=== PATIENT | male | born 2000 | race Caucasian/White ===

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

== ENCOUNTER → 2022-03-08 12:19 | Outpatient (BNVA) | payer OTHER, SELFPAY | PROVIDERS: Visit Provider Physician Assistant Medical | DX: L23.7 Allergic contact dermatitis due to plants, except food (principal) | CPT/HCPCS: 99213 ==

== ENCOUNTER → 2022-03-12 13:14 | Outpatient (BNVA) | payer OTHER, SELFPAY | PROVIDERS: Visit Provider Physician Assistant | DX: L23.7 Allergic contact dermatitis due to plants, except food (principal) | CPT/HCPCS: 99213 ==

== ENCOUNTER 2022-04-14 09:21 | Outpatient (REF) | payer OTHER, SELFPAY ==
--- NOTE | ~2022-04-14 | US_ITS ---
EXAMINATION: US RETROPERITONEAL LIMITED (RENAL ONLY) CLINICAL INFORMATION: Calculus of kidney. COMPARISON: Renal ultrasound 03/02/2021 and 06/19/2020. CT abdomen and pelvis 06/19/2020. TECHNIQUE: Real-time imaging of the kidneys. FINDINGS: RIGHT KIDNEY: 11.1 x 4.7 x 4.7 cm (SAG x AP x TRV). The kidney is normal in size, contour, and echogenicity. Renal cortical thickness is normal. There are 2 stones measuring 3 mm and 4 x 7 mm in the midpole. No focal parenchymal lesions or hydronephrosis. LEFT KIDNEY: 11.8 x 5.8 x 4.7 cm (SAG x AP x TRV). The kidney is normal in size, contour, and echogenicity. Renal cortical thickness is normal. There are 2 stones measuring 4 and 5 mm in the mid pole. No focal parenchymal lesions or hydronephrosis. US/US renal BI IMPRESSION: Bilateral renal stones.
== END 2022-04-14 09:22 | disposition home or self-care (01) ==
LOC: HO.US 09:21
PROVIDERS: Visit Provider Urology
DX: N20.0 Calculus of kidney (principal)
CPT/HCPCS: 76775

== ENCOUNTER 2022-05-21 18:51 | Emergency (ER) | payer OTHER, SELFPAY ==
--- NOTE | ~2022-05-21 | XR_ITS ---
EXAMINATION: XR KNEE, LEFT CLINICAL INFORMATION: Pain status post fall COMPARISON: None TECHNIQUE: Four views of the left knee. FINDINGS: Bones and soft tissues are normal. No fracture or joint effusion. Alignment is anatomic. Joint spaces are well maintained. No abnormal soft tissue calcification. XR/XR knee LT 3V IMPRESSION: Normal left knee.
[2022-05-21 20:31] VITALS: BP 117/47; PULSE 80; RESP 17; TEMP 36.7; O2SAT 97; BMI 20.7
[2022-05-21 21:21] VITALS: BP 116/44; PULSE 85; RESP 18; TEMP 36.8; O2SAT 99
--- NOTE | 2022-05-21 21:36 | ED.LOWEXIN ---
HPI - Extremity Injury (Lower) General Chief Complaint: Extremity Injury, Lower Stated Complaint: L knee inj/work inj Time Seen by Provider: 05/21/22 21:32 Source: patient Mode of arrival: ambulatory Limitations: no limitations History of Present Illness MD complaint: knee injury Onset (ago): hour(s) (earlier today ) Injury: Left: knee Type of Injury: other (twisting) Place: work Severity: moderate Relieving factors: immobilization Exacerbating factors: weight bearing, movement and palpation Context: fall (stepped into a ditch) Associated symptoms: snap/pop sensation Other symptoms: none Related Data Home Medications Medication Instructions Recorded Confirmed hydroxyzine pamoate 25 mg capsule mg PO TID PRN 04/29/22 prednisone 10 mg tablet 0 mg PO 04/29/22 Previous Rx's Medication Instructions Recorded ketorolac 10 mg tablet 10 mg PO Q6H PRN pain 5 days 06/19/20 ondansetron HCl 4 mg tablet 4 mg PO Q8H PRN nausea and 06/19/20 (Zofran) vomiting #10 tabs prednisone 20 mg tablet 20 mg PO DAILY 5 days #5 tabs 06/19/20 tamsulosin 0.4 mg capsule (Flomax) 0.4 mg PO DAILY 10 days #10 caps 06/19/20 tramadol 50 mg tablet 50 mg PO Q6H PRN pain #14 tabs 06/30/20 loratadine 10 mg tablet (Allergy 10 mg PO DAILY #30 tabs 11/11/20 Relief (loratadine)) pyridoxine (vitamin B6) 100 mg 100 mg PO DAILY 90 days #90 tabs 05/01/21 tablet hydroxyzine HCl 25 mg tablet 50 mg PO Q6-8H PRN itching #20 tabs 09/01/21 triamcinolone acetonide 0.025 % 1 appl topical BID #454 grams 09/01/21 topical cream Allergies Allergy/AdvReac Type Severity Reaction Status Date / Time No Known Allergies Allergy Verified 04/29/22 15:56 [No Known Allergies*] Review of Systems Review of Systems: Constitutional : No Fever, No Chills Cardiovascular : No Chest Pain, No SOB Respiratory : No Cough, No Dyspnea Gastrointestinal : No Nausea, No Vomiting, No Diarrhea, No abdominal Pain Genitourinary : No Dysuria, No Hematuria Musculoskeletal : positive joint pain, No Myalgias, No Joint Swelling Skin : No Skin lacerations, No rash Neuro : No Weakness, No Numbness PMFSH Past Medical History Attestation statement: The following information was validated with the patient. Medical History Nephrolithiasis Social History Social History (Updated 05/21/22 @ 21:51 by Lety Aguillon DO) Alcohol intake: never Patient Tobacco Use Status: Never used Tobacco Second Hand Smoke Exposure: No Substance Use Type: Marijuana Advance Directives: No Advance Directives Information Provided: No Physical Exam Vital Signs: Vital Signs: Last Vital Signs Temp 98.3 F 05/21/22 21:21 Pulse 85 05/21/22 21:21 Resp 18 05/21/22 21:21 BP 116/44 L 05/21/22 21:21 Pulse Ox 99 05/21/22 21:21 O2 Del Method 05/21/22 21:21 BMI result Body Mass Index 20.7 Appearance: Alert. Oriented X3. No acute distress. Eyes: Pupils equal, round and reactive to light. ENT: Pharynx normal. Neck: Normal inspection. Neck supple. CVS: Pulses normal. Respiratory: No respiratory distress. Abdomen: Soft and non-tender. Skin: Skin warm and dry. Normal skin color. Extremities: No lower extremity edema. L knee ttp posterior knee and lateral aspect no effusion distal NV intact - ACL and MCL feel intact no obvious lig laxity Neuro: Oriented X 3. No motor deficit. No sensory deficit. MDM - Extremity Injury (Lower) MDM Narrative Medical decision making narrative: 21 yo male otherwise healthy here with twisting injury to L knee at this time will obtain xrays, immobilizer follow up with PCP for MRI if no better - sprain suspected. He is NV intact Procedures Orthopedic Splinting/Casting Injury #1: Side: left Lower Extremity Injury Location: knee Lower Extremity Immobilizer: knee immobilizer Discharge Plan Discharge Clinical Impression: Left knee sprain Qualifiers: Encounter type: initial encounter Involved ligament of knee: unspecified ligament Qualified Code(s): S83.92XA - Sprain of unspecified site of left knee, initial encounter Patient Disposition: Home, Self-Care Instructions: Knee Sprain (ED) Additional Instructions: return to ED for any worsening symptoms or concerns wear immobilizer if not better over the weekend see your doctor as you may need MRI to look at ligaments and cartilage take tylenol and motrin follow up with doctor to get cleared for work Prescriptions: No Action loratadine [Allergy Relief (loratadine)] 10 mg tablet 10 mg PO DAILY Qty: 30 3RF tramadol 50 mg tablet 50 mg PO Q6H PRN (Reason: pain) Qty: 14 0RF ondansetron HCl [Zofran] 4 mg tablet 4 mg PO Q8H PRN (Reason: nausea and vomiting) Qty: 10 0RF ketorolac 10 mg tablet 10 mg PO Q6H PRN (Reason: pain) 5 Days 0RF prednisone 20 mg tablet 20 mg PO DAILY 5 Days Qty: 5 0RF tamsulosin [Flomax] 0.4 mg capsule 0.4 mg PO DAILY 10 Days Qty: 10 0RF hydroxyzine HCl 25 mg tablet 50 mg PO Q6-8H PRN (Reason: itching) Qty: 20 0RF Rx Instructions: take one or two tabs q6-8 hrs triamcinolone acetonide 0.025 % cream 1 appl topical BID Qty: 454 0RF pyridoxine (vitamin B6) 100 mg tablet 100 mg PO DAILY 90 Days Qty: 90 3RF hydroxyzine pamoate 25 mg capsule PO TID PRN prednisone 10 mg tablet 0 mg PO
== END 2022-05-21 22:35 | disposition home or self-care (01) ==
PROVIDERS: Emergency Provider Emergency Medicine
DX: S83.92XA Sprain of unspecified site of left knee, initial encounter (principal); X50.1XXA Overexertion from prolonged static or awkward postures, initial encounter; Y93.9 Activity, unspecified; Y92.9 Unspecified place or not applicable; Y99.0 Civilian activity done for income or pay; Z79.899 Other long term (current) drug therapy
CPT/HCPCS: 29505; 73562; 99282; 99283

== ENCOUNTER 2023-01-05 06:59 | Emergency (ER) | payer OTHER, SELFPAY ==
--- NOTE | ~2023-01-05 | CT_ITS ---
EXAMINATION: CT ABDOMEN AND PELVIS WITHOUT CONTRAST CLINICAL INFORMATION: Right groin pain with hematuria and history of renal calculi COMPARISON: CT abdomen pelvis 06/19/2020 TECHNIQUE: Multidetector volumetric imaging was performed from the superior aspect of the liver through the pubic symphysis. Sagittal and coronal reformatted images were obtained on the technologist's workstation. This CT examination was performed using dose optimization techniques as appropriate, variously including the following: *Automated exposure control *Adjustment of mA and/or kV according to patient size (this includes techniques or standardized protocols for targeted exams where dose is matched to indication/reason for exam; i.e. extremities or head) *Use of iterative reconstruction technique DLP: 294 mGy-cm FINDINGS: LUNG BASES: The visualized lung bases are unremarkable. LIVER, GALLBLADDER, AND BILIARY TREE: The liver is enlarged measuring about 20 cm in cephalocaudad dimension but is normal in shape and attenuation. No focal hepatic lesion or biliary ductal dilatation is present. The gallbladder is unremarkable with no evidence of radiopaque gallstones, gallbladder wall thickening, or obvious pericholecystic inflammatory changes. PANCREAS: Unremarkable. SPLEEN: Unremarkable. ADRENAL GLANDS: Unremarkable. KIDNEYS AND URETERS: There is an obstructing stones at the right ureteropelvic junction measuring 9 x 5 x 8 mm in size and 1100 Hounsfield units the stone is 8.3 cm from the posterior axillary line. On 06/19/2020, there was a 3 mm stone present in the kidney. No other definite calculi are seen. No definite left-sided calculi. No renal masses. The ureters are nondilated. BLADDER: The bladder is nearly empty but unremarkable. GASTROINTESTINAL TRACT: Diverticular changes are present in the colon without evidence of diverticulitis. The small and large bowel are otherwise unremarkable. The appendix is none identified with certainty but there is no evidence of appendicitis.. ABDOMINAL WALL: No significant hernia is appreciated. LYMPH NODES: There is a prominent left para-aortic lymph node seen measuring 0.9 x 0.4 x 3.0 cm. No gross retroperitoneal lymphadenopathy is seen. Evaluation is less than optimal secondary to lack of IV contrast and lack of retroperitoneal fat. VASCULAR: Unremarkable. PELVIC VISCERA: Unremarkable. OSSEOUS STRUCTURES: Unremarkable. CT/CT abdomen pelvis wo IV con IMPRESSION: 1. 9 x 5 x 8 mm obstructing right ureteropelvic junction calculus. 2. Incidental note made of hepatomegaly, colonic diverticulosis and a prominent left para-aortic lymph node. Fleischner guidelines were followed.
[2023-01-05 07:01] VITALS: BP 129/68; PULSE 76; RESP 18; TEMP 36.8; O2SAT 100; BMI 20.9
--- NOTE | 2023-01-05 07:36 | ED.MALEGU ---
HPI - Male Genitourinary General Chief complaint: Urogenital-Male Stated complaint: Blood in urine Time Seen by Provider: 01/05/23 07:05 Source: patient Mode of arrival: ambulatory Limitations: no limitations History of Present Illness HPI Narrative: Patient is a 22-year-old male with history of kidney stones presenting with hematuria and right groin pain since this morning. He reports that his urine was darker than normal yesterday. He denies any dysuria or difficulty urinating. He denies any nausea or vomiting. Denies any fevers, denies abdominal or flank pain. He has not taken any OTC medications [employer]. He denies concern for STIs. He denies any rashes, erythema, or swelling in groin, denies any penile discharge. MD Complaint: other (hematuria) Onset (ago): hour(s) Location: right inguinal region Severity scale (1-10): 6 Relieving factors: none Exacerbating factors: movement Associated symptoms: Reports blood in urine Related Data Home Medications Medication Instructions Recorded Confirmed hydroxyzine pamoate 25 mg capsule mg PO TID PRN 04/29/22 prednisone 10 mg tablet 0 mg PO 04/29/22 Previous Rx's Medication Instructions Recorded ketorolac 10 mg tablet 10 mg PO Q6H PRN pain 5 days 06/19/20 ondansetron HCl 4 mg tablet 4 mg PO Q8H PRN nausea and 06/19/20 (Zofran) vomiting #10 tabs prednisone 20 mg tablet 20 mg PO DAILY 5 days #5 tabs 06/19/20 tamsulosin 0.4 mg capsule (Flomax) 0.4 mg PO DAILY 10 days #10 caps 06/19/20 tramadol 50 mg tablet 50 mg PO Q6H PRN pain #14 tabs 06/30/20 loratadine 10 mg tablet (Allergy 10 mg PO DAILY #30 tabs 11/11/20 Relief (loratadine)) pyridoxine (vitamin B6) 100 mg 100 mg PO DAILY 90 days #90 tabs 05/01/21 tablet hydroxyzine HCl 25 mg tablet 50 mg PO Q6-8H PRN itching #20 tabs 09/01/21 triamcinolone acetonide 0.025 % 1 appl topical BID #454 grams 09/01/21 topical cream prednisone 20 mg tablet 20 mg PO DAILY #4 tabs 01/05/23 tamsulosin 0.4 mg capsule 0.4 mg PO DAILY #14 caps 01/05/23 Allergies Allergy/AdvReac Type Severity Reaction Status Date / Time No Known Allergies Allergy Verified 04/29/22 15:56 [No Known Allergies*] Review of Systems Review of Systems: As per HPI. Yes all other systems are reviewed and are negative Constitutional: Constitutional: Reports as per HPI [facility] Past Medical History Medical History Nephrolithiasis Social History Social History (Updated 05/21/22 @ 21:51 by Lety Aguillon DO) Alcohol intake: never Patient Tobacco Use Status: Never used Tobacco Second Hand Smoke Exposure: No Substance Use Type: Marijuana Advance Directives: No Advance Directives Information Provided: No Physical Exam Vital Signs: Vital Signs: Last Vital Signs Temp 98.2 F 01/05/23 12:21 Pulse 72 01/05/23 12:21 Resp 18 01/05/23 12:21 BP 104/55 L 01/05/23 12:21 Pulse Ox 98 01/05/23 12:21 O2 Del Method Room Air 01/05/23 12:21 BMI result Body Mass Index 20.9 Vital signs have been reviewed and appear to be correct. Blood pressure normal. Heart rate normal. Respiratory rate normal. Temperature normal. Oxygen saturation normal. Const: General: cooperative, healthy appearing and no acute distress Orientation/consciousness: oriented to person, oriented to place, oriented to time and patient oriented x3 Limitations: no limitations HEENT: Head: Yes normocephalic and Yes atraumatic Ears: external ears normal General nose exam: Normal external nose present Face and sinus: Yes face symmetric Mouth: oropharynx normal and moist mucous membranes Throat: Yes uvula midline Eyes: Pupils: Equal, round and reactive pupils present Neck: Neck: Yes normal visual inspection and Yes supple Resp: Effort & Inspection: normal respiratory effort and able to speak in complete sentences Auscultation: clear to auscultation bilaterally Cardio: Rate: regular rate Rhythm: regular rhythm Heart sounds: S1 normal heart sound present and S2 normal heart sound present GI: Inspection: Yes normal to inspection Palpation (GI): Soft to palpation, nontender, no guarding, no hernias and No Rebound tenderness present Auscultation: normoactive bowel sounds : General: Yes no CVA tenderness Back/Spine/Pelvis: Back: no CVA tenderness Skin: General skin exam: elasticity normal and turgor normal Neuro: General: oriented to person, oriented to place, oriented to time, patient oriented x3, moves all extremities, no focal motor deficits and CN's II-XI intact bilaterally Cranial nerves: Yes Equal, round and reactive pupils present Cognition (Neuro): normal cognition Extrem: General: Yes full ROM, Yes no pedal edema and Yes no calf tenderness Psych: Mental Status: mental status grossly normal Affect: normal affect Thought process: Normal thought process present Course Course Course Narrative: 11:05 CT scan shows 9 x5 x 8mm obstructing stone to right UPJ. Also incidental finding of prominent left para aortic lymph node. Patient updated on result and instructed to follow up with his PCP this week for further evaluation of the lymph node. [place] Text to Dr. Kay regarding management. Patient denies any pain or nausea currently. 12:[address] Kay patient can go home with tamsulosin and prednisone and follow up outpatient. All results discussed with patient and all questions answered, patient agreeable with plan. Medications Administered Discontinued Medications Generic Name Dose Route Start Last Admin Trade Name Freq PRN Reason Stop Dose Admin Ketorolac Tromethamine 15 mg 01/05/23 07:40 01/05/23 07:57 Ketorolac Tromethamine 15 Mg/Ml Vial IVPUSH 01/05/23 07:41 15 mg ONCE ONE Administration Medical Decision Making Medical Decision Making [facility] Narrative: Patient is a 22-year-old male with history of kidney stones presenting with hematuria and right groin pain since this morning. On exam patient is awake, A+Ox3, VS WNL, nontoxic appearing, abdomen soft, nontender to palpation, no CVA tenderness. Concern for UTI versus nephrolithiasis versus STI. Less likely pyelonephritis, appendicitis, diverticulitis. Unlikely hernia or testicular torsion. Will obtain CT NG urine, UA, medicate for pain, reassess. Please refer to course for remaining clinical decision making. Differential Diagnosis Differential Diagnoses: The differential diagnosis associated with the presentation includes As above. Admission/Observation Consideration of admission/observation: Escalation of care including admission/observation considered Consult Healthcare Provider Management of the patient was discussed with: Waste Examiner (Dr. Kay) Lab Data [facility] Lab Attestation statement: I reviewed the patient's lab results. 01/05/23 07:25 05/31/23 07:25 Labs: Lab Results 01/05/23 01/05/23 01/05/23 Range/Units 07:23 07:25 07:25 WBC 4.8 (4.8-10.8) X10*3/uL RBC 4.73 (4.60-5.80) X10*6/uL Hgb 14.1 (14.0-18.0) g/dl Hct 43.0 (42.0-52.0) % MCV 90.9 (80.0-98.0) fL MCH 29.8 (27.0-33.0) pg MCHC 32.8 (31.0-36.0) g/dl RDW 12.5 (11.0-16.0) % Plt Count 255 (160-400) X10*3/uL MPV 10.0 (9.4-12.4) fL Absolute Nucleated RBC 0.000 (0.0-0.012) X10*3/uL Nucleated RBC % (auto) 0.0 (0.0-0.2) /100WBC Sodium 140 (135-145) mmol/L Potassium 4.3 (3.3-5.1) mmol/L Chloride 105 (96-108) mmol/L Carbon Dioxide 29 (22-29) mmol/L Anion Gap 10 L (12-20) BUN 9 (9-16) mg/dL Creatinine 0.75 (0.5-1.4) mg/dL Estim Creat Clear Calc 151.1 Estimated GFR > 60 Random Glucose 101 (60-115) mg/dL Calcium 9.4 (8.4-10.2) mg/dL Urine Color RED Urine Appearance Cloudy Urine pH 5.0 (5.0-9.0) Ur Specific [place] 1.025 (1.005-1.025) Urine Protein 100 (2+) H (Neg-Trace) mg/dL Urine Glucose (UA) Negative (Negative) mg/dL Urine Ketones Trace (Negative) mg/dL Urine Blood Large (3+) H (Negative) Urine Nitrite TNP Ur Leukocyte Esterase Small (1+) H (Negative) Urine RBC >20 H (0-2) /HPF Urine WBC 21-50 H (0-5) /HPF Ur Squamous Epith Cells 0-2 (0-2) /HPF Urine Bacteria None Seen (None Seen) Hyaline Casts 0-2 (0-2) /LPF Chlam trachomat DNA PCR N.gonorrhoeae DNA (PCR) 01/05/23 Range/Units 08:15 WBC (4.8-10.8) X10*3/uL RBC (4.60-5.80) X10*6/uL Hgb (14.0-18.0) g/dl Hct (42.0-52.0) % MCV (80.0-98.0) fL MCH (27.0-33.0) pg MCHC (31.0-36.0) g/dl RDW (11.0-16.0) % Plt Count (160-400) X10*3/uL MPV (9.4-12.4) fL Absolute Nucleated RBC (0.0-0.012) X10*3/uL Nucleated RBC % (auto) (0.0-0.2) /100WBC Sodium (135-145) mmol/L Potassium (3.3-5.1) mmol/L Chloride (96-108) mmol/L Carbon Dioxide (22-29) mmol/L Anion Gap (12-20) BUN (9-16) mg/dL Creatinine (0.5-1.4) mg/dL Estim Creat Clear Calc Estimated GFR Random Glucose (60-115) mg/dL Calcium (8.4-10.2) mg/dL Urine Color Urine Appearance Urine pH (5.0-9.0) Ur Specific [place] (1.005-1.025) Urine Protein (Neg-Trace) mg/dL Urine Glucose (UA) (Negative) mg/dL Urine Ketones (Negative) mg/dL Urine Blood (Negative) Urine Nitrite Ur Leukocyte Esterase (Negative) Urine RBC (0-2) /HPF Urine WBC (0-5) /HPF Ur Squamous Epith Cells (0-2) /HPF Urine Bacteria (None Seen) Hyaline Casts (0-2) /LPF Chlam trachomat DNA PCR TNP N.gonorrhoeae DNA (PCR) TNP Independent Interpretation I performed an independent interpretation of an: CT Scan Interpretation: I independently reviewed the CT scan and agree with the radiologist's interpretation. Radiology Impression Discussion of test interpretation with radiology: I have reviewed the radiologist's reading. Radiologist Impression: FINDINGS: LUNG BASES: The visualized lung bases are unremarkable.? LIVER, GALLBLADDER, AND BILIARY TREE: The liver is enlarged measuring about 20 cm in cephalocaudad dimension but is normal in shape and attenuation. No focal hepatic lesion or biliary ductal dilatation is present. The gallbladder is unremarkable with no evidence of radiopaque gallstones, gallbladder wall thickening, or obvious pericholecystic inflammatory changes.? PANCREAS: Unremarkable.? SPLEEN: Unremarkable.? ADRENAL GLANDS: Unremarkable.? KIDNEYS AND URETERS: There is an obstructing stones at the right ureteropelvic junction measuring 9 x 5 x 8 mm in size and 1100 Hounsfield units the stone is 8.3 cm from the posterior axillary line. On 06/19/2020, there was a 3 mm stone present in the kidney. No other definite calculi are seen. No definite left-sided calculi. No renal masses. The ureters are nondilated. BLADDER: The bladder is nearly empty but unremarkable.? GASTROINTESTINAL TRACT: Diverticular changes are present in the colon without evidence of diverticulitis. The small and large bowel are otherwise unremarkable. The appendix is none identified with certainty but there is no evidence of appendicitis..? ABDOMINAL WALL: No significant hernia is appreciated.? LYMPH NODES: There is a prominent left para-aortic lymph node seen measuring 0.9 x 0.4 x 3.0 cm. No gross retroperitoneal lymphadenopathy is seen. Evaluation is less than optimal secondary to lack of IV contrast and lack of retroperitoneal fat. VASCULAR: Unremarkable. PELVIC VISCERA: Unremarkable.? OSSEOUS STRUCTURES: Unremarkable.? CT/CT abdomen pelvis wo IV con IMPRESSION: 1.? 9 x 5 x 8 mm obstructing right ureteropelvic junction calculus. 2.? Incidental note made of hepatomegaly, colonic diverticulosis and a prominent left para-aortic lymph node. ? Fleischner guidelines were followed. External Record Review External record reviewed: Inpatient record, Office record and Outpatient record Prescription Management I considered prescription management with: Pain Medication Discharge Plan Discharge Clinical Impression: Ureteropelvic junction calculus Patient Disposition: Home, Self-Care Instructions: Renal Colic (ED), How to Strain Your Urine (ED), Ureteral Stones (ED) Additional Instructions: You were evaluated in the emergency department today for blood in your urine. Your CT scan showed a 9mm x 5mm x 8mm stone in your right ureter. There was also in incidental finding of a prominent left para-aortic lymph node. Please follow up with your PCP this week for further evaluation of this lymph node. You are being prescribed medications, please take these as prescribed. You are being referred to urology, please follow up with them within the next 2 days. Return to the emergency department if you develop severe pain, vomiting, inability to urinate, back or flank pain, fever 100.4F or greater, or for any other concerning symptoms. Prescriptions: New tamsulosin 0.4 mg capsule 0.4 mg PO DAILY Qty: 14 0RF prednisone 20 mg tablet 20 mg PO DAILY Qty: 4 0RF No Action loratadine [Allergy Relief (loratadine)] 10 mg tablet 10 mg PO DAILY Qty: 30 3RF tramadol 50 mg tablet 50 mg PO Q6H PRN (Reason: pain) Qty: 14 0RF ondansetron HCl [Zofran] 4 mg tablet 4 mg PO Q8H PRN (Reason: nausea and vomiting) Qty: 10 0RF ketorolac 10 mg tablet 10 mg PO Q6H PRN (Reason: pain) 5 Days 0RF prednisone 20 mg tablet 20 mg PO DAILY 5 Days Qty: 5 0RF tamsulosin [Flomax] 0.4 mg capsule 0.4 mg PO DAILY 10 Days Qty: 10 0RF hydroxyzine HCl 25 mg tablet 50 mg PO Q6-8H PRN (Reason: itching) Qty: 20 0RF Rx Instructions: take one or two tabs q6-8 hrs triamcinolone acetonide 0.025 % cream 1 appl topical BID Qty: 454 0RF pyridoxine (vitamin B6) 100 mg tablet 100 mg PO DAILY 90 Days Qty: 90 3RF hydroxyzine pamoate 25 mg capsule PO TID PRN prednisone 10 mg tablet 0 mg PO Referrals: [facility] [Provider Group] Stand Alone Forms: Work/School Release
[2023-01-05 07:48] LABS: Appearance Urine Cloudy; Color Urine RED; Glucose Urine UA Negative (Negative); Leukocyte Esterase Urine Small (1+) (Negative); Specific Gravity - Urine 1.025 (1.005-1.025); UMIC TRIGGER UACC YES; Urine Blood Large (3+) (Negative); Urine Ketones Trace mg/dL (Negative); Urine Protein 100 (2+) mg/dL (Neg-Trace)
[2023-01-05 07:50] LABS: Anion Gap 10 (12-20); Blood Urea Nitrogen 9 mg/dL (9-16); Calcium 9.4 mg/dL (8.4-10.2); Carbon Dioxide 29 mmol/L (22-29); Chloride 105 mmol/L (96-108); Creatinine Clr Calc Pharmacy 151.1; Estimated Glomerular Filt Rate > 60; Glucose Random 101 mg/dL (60-115); Hemoglobin 14.1 g/dl (14.0-18.0); Mean Corpuscular HGB Conc 32.8 g/dl (31.0-36.0); Mean Corpuscular Hemoglobin 29.8 pg (27.0-33.0); Mean Corpuscular Volume 90.9 fL (80.0-98.0); Platelet Count 255 X10*3/uL (160-400); Potassium 4.3 mmol/L (3.3-5.1); Red Blood Count 4.73 X10*6/uL (4.60-5.80); Red Cell Distribution Width 12.5 % (11.0-16.0); Sodium 140 mmol/L (135-145); White Blood Count 4.8 X10*3/uL (4.8-10.8)
[2023-01-05] MEDS: Ketorolac Tromethamine 15 MG/ML VIAL IVPUSH (07:57)
[2023-01-05 08:04] LABS: Bacteria Urine None Seen (None Seen); Hyaline Casts Urine 0-2 /LPF (0-2); RBC Urine >20 /HPF (0-2); Squamous Epithelial Cell Urine 0-2 /HPF (0-2); WBC Urine 21-50 /HPF (0-5)
[2023-01-05 08:13] LABS: UACC Culture Trigger YES
[2023-01-05 12:21] VITALS: BP 104/55; PULSE 72; RESP 18; TEMP 36.8; O2SAT 98
== END 2023-01-05 13:19 | disposition home or self-care (01) ==
PROVIDERS: Registered Nurse Emergency; Emergency Provider Emergency Medicine; PCP Family Medicine
DX: N20.2 Calculus of kidney with calculus of ureter (principal); Z87.442 Personal history of urinary calculi
CPT/HCPCS: 0353U; 36415; 74176; 80048; 81001; 85027; 87086; 99284; J1885

== ENCOUNTER → 2023-01-06 08:40 | Outpatient (BNVA) | payer OTHER, SELFPAY | PROVIDERS: PCP Family Medicine; Visit Provider Urology ==

== ENCOUNTER 2023-01-11 11:42 | Day surgery (SDC) | payer OTHER, SELFPAY ==
--- NOTE | 2023-01-10 13:32 | HO.ANESPROP2 ---
Documented by User: Sujatha Falcon NP 01/10/23 13:33 HPI - Anesthesia Eval Consult details Narrative: 22yo M for Right Cystoscopy, Ureteroroscopy, Retro, Laser,with poss stent PMFSH Active Problems Active Problems: All Active Problems (Updated 01/06/23 @ 09:38 by Shi East MD) Hydronephrosis (Acute) Right ureteral stone (Acute) Viral exanthem (Acute) Past Medical History Medical History Nephrolithiasis Social History Social History Alcohol intake: never Patient Tobacco Use Status: Never used Tobacco Second Hand Smoke Exposure: No Use of substances other than those prescribed or required for medical reasons: Yes Substance Use Type: Marijuana Substance Use Frequency: Daily Are you DNR?: No Advance Directives: No Advance Directives Information Provided: Yes Meds Allergies Allergy/AdvReac Type Severity Reaction Status Date / Time No Known Allergies Allergy Verified 01/06/23 08:46 [No Known Allergies*] Home Medications Medication Instructions Recorded Confirmed Last Taken Type prednisone 10 mg tablet 0 mg PO 04/29/22 01/06/23 Unknown History Exam Exam Date and Time: January 10, 20231331 Pertinent Lab Results Pertinent Lab Results: Laboratory Tests 01/05/23 01/05/23 07:25 07:25 WBC 4.8 Hgb 14.1 Hct 43.0 Plt Count 255 Sodium 140 Potassium 4.3 Chloride 105 Carbon Dioxide 29 BUN 9 Creatinine 0.75 Assessment and Plan Assessment Anesthesia Assessment: Chart Reviewed Documented by User: Ricky Smith MD 01/11/23 16:50 PMFSH Past Medical History Medical History Nephrolithiasis Family History Family history of problems with anesthesia: No Surgical History History of Problems with Anesthesia: No Social History Social History Alcohol intake: never Patient Tobacco Use Status: Never used Tobacco Second Hand Smoke Exposure: No Use of substances other than those prescribed or required for medical reasons: Yes Substance Use Type: Marijuana Substance Use Frequency: Daily Are you DNR?: No Advance Directives: No Advance Directives Information Provided: Yes Meds Allergies Allergy/AdvReac Type Severity Reaction Status Date / Time No Known Allergies Allergy Verified 01/06/23 08:46 [No Known Allergies*] Home Medications Medication Instructions Recorded Confirmed Last Taken Type prednisone 10 mg tablet 0 mg PO 04/29/22 01/06/23 Unknown History Exam Airway Mallampati Class: I TM Dist: >3cm Neck ROM: Full Loose/Missing/Broken Teeth: No Assessment and Plan Assessment Anesthesia Assessment: Anesthesia Plan Discussed Final Anesthetic Review Family History of Problems with Anesthesia: No History of Problems with Anesthesia: No ASA Class: I Final Preanesthetic Review: No Changes in Pt Med Stat, Meds/Allgs Chart Reviewed, Consent Obtained/Reviewed and Anes Risks/Benef Reviewed Patient Risk: Low Procedure Risk: Low Anesthetic Plan Anesthetic Plan: GA Disposition: Standard PACU
[2023-01-11] VITALS (10 sets, daily range): BP systolic 112–152; BP diastolic 62–96; PULSE 66–84; RESP 15–20; TEMP 36.3–37.1; O2SAT 96–100; BMI 20.9
--- NOTE | ~2023-01-11 | FL_ITS ---
EXAMINATION: XR FLUOROSCOPY WITH IMAGES CLINICAL INFORMATION: Cystoscopy, ureteroscopy retrograde laser with possible stent. COMPARISON: None available. TECHNIQUE: Fluoroscopy Supervised By: Dr. Emil Kay. Fluoroscopy Time: 37.1 seconds. Cumulative Dose: mGy. DAP: Gycm2. Images: 7. FINDINGS: Initial images demonstrate a large stone in the right renal pelvis. Subsequent images demonstrate contrast injection of the right collecting system and proximal ureter. Final images demonstrate placement of the right internal ureteral stent. FL/FL guidance in OR IMPRESSION: Fluoroscopy guidance for right retrograde exam and stent placement.
--- NOTE | 2023-01-11 16:58 | P.HPSUR_ITS ---
Pre-Procedural Eval Section A Date of Service: 01/11/23 The patient is an INPATIENT: No The History & Physical has been completed within 30 days and I have reviewed it.: Yes Section B Chief Complaint: Calculus of ureter, right Relevant Family History (Specify if Yes): No Relevant Social History: None Allergies: Allergies Allergy/AdvReac Type Severity Reaction Status Date / Time No Known Allergies Allergy Verified 01/06/23 08:46 [No Known Allergies*] Plan Diagnosis/Plan: Unchanged I have reviewed the history and physical and performed a pertinent physical examination on my patient. No changes have occurred unless specified. Plan for Cystoscopy, right ureteroscopy, possible laser lithotripsy, possible ureteral stent. Risks discussed included but not limited to, possible need to repeat procedure if stone is not completely fragmented, Irritative voiding s ymptoms, bladder spasms, urgency, blood in urine. Time Spent With Patient Time: Total time managing care of this patient today ____ minutes.
--- NOTE | 2023-01-11 19:02 | W.PM.OPN ---
Operative Note Operative Note Date of Service: 01/11/23 Narrative: PreOperative Diagnosis:?? right UPJ stone Post Operative Diagnosis:?? right UPJ stone Procedure: - cystoscopy, right retrograde, right ureteroscopy laser lithotripsy stent insertion, 6 [place]alan by multi length cm Surgeon:?Dr Shi East Anesthesia:? General Indications for procedure: Patrice is a 22-year-old gentleman with right UPJ stone 9 x 8 mm Procedure: After informed consent was verified the patient was brought to the operating placed on the OR table in supine position.? General Anesthesia was administered per protocol.? The patient was placed in lithotomy position, prepped and draped in the usual sterile fashion.? Safety pause time-out and side of surgery confirmed.? Antibiotics confirmed. 2% lidocaine jelly 10 mL was passed transurethrally. A 22 [place]alan cystoscope was inserted transurethrally, the bulbous urethra was within normal limits. The prostatic urethra was nonobstructive. The bladder was visualized.? Both ureteric orifices were in normal position. An open-ended ureteral catheter was passed into the right ureteral orifice and a retrograde examination was performed. There was a filling defect in the right UPJ and dilatation of the renal pelvis and calices. A guidewire was passed through the ureteral catheter into the kidney. The balloon dilator size 15 fr was passed over the guide -wire the balloon was inflated to 10 mmHg and the intramural ureter was dilated for 40 seconds. The balloon was deflated and removed. After removing the balloon dilator a 2nd guidewire was then passed into the kidney to use as a safety. The cystoscope was removed, leaving both guidewires in place. One guidewire was used as the safety and was attached to the draping. The disposable flexible ureteroscope was passed over one of the guidewires to the level of the stone in the ureter. One guidewire was then removed. Laser lithotripsy of the stone was done using the 275 fiber with a settings 0.8 joules by 6 hertz alternating with 0.5 J x 20 hertz. There was good fragmentation of the stone. The ureteroscope was removed. The cystoscope was passed over the safety guidewire. A? 6 [place]alan by multi length cm stent was placed into the ureter and renal pelvis under a combination of fluoroscopy and direct visualization. The bladder was emptied.? The rigid cystoscope was removed. ? The patient tolerated the procedure well and was brought to the recovery room in stable condition. Complications: None Drains: Ureteral stent as dictated above
[2023-01-11] MEDS: Acetaminophen 1,000 MG/100 ML PIGGYBACK 400 MG IV (19:06)
[2023-01-11] MEDS: Phenazopyridine HCL 200 MG TABLET PO (19:07)
[2023-01-11] MEDS: ondansetron HCL 4 MG/2 ML VIAL IVPUSH (19:08)
[2023-01-11] MEDS: fentaNYL citrate/PF 100 MCG/2 ML VIAL 50 MCG IVPUSH ×2 (19:19→19:34)
== END 2023-01-11 20:13 | disposition home or self-care (01) ==
PROVIDERS: PCP Family Medicine; Visit Provider Urology
PROC: (CPT 52356; principal; 2023-01-11 14:10)
DX: N20.1 Calculus of ureter (principal); N13.30 Unspecified hydronephrosis; Z87.442 Personal history of urinary calculi; R59.0 Localized enlarged lymph nodes; R16.0 Hepatomegaly, not elsewhere classified; K57.30 Diverticulosis of large intestine without perforation or abscess without bleeding; Z79.52 Long term (current) use of systemic steroids; F12.90 Cannabis use, unspecified, uncomplicated
CPT/HCPCS: 52356; 88300; C1726; C1758; C1769; C2617; J0131; J0690; J1885; J1940; J2250; J2405; J3010; Q9967

== ENCOUNTER 2023-02-01 07:46 | Day surgery (SDC) | payer OTHER, SELFPAY ==
--- NOTE | 2023-01-31 10:59 | P.CONAN_ITS ---
Documented by User: Sujatha Falcon NP 01/31/23 11:02 HPI - Anesthesia Eval Consult details Narrative: 22yo M for Right Cystoscopy, Ureteroroscopy, Retro, Laser with stent removal PMFSH Active Problems Active Problems: All Active Problems (Updated 01/06/23 @ 09:38 by Shi East MD) Hydronephrosis (Acute) Right ureteral stone (Acute) Viral exanthem (Acute) Past Medical History Medical History Nephrolithiasis Family History Family history of problems with anesthesia: No Surgical History History of Problems with Anesthesia: No Social History Social History Alcohol intake: never Patient Tobacco Use Status: Never used Tobacco Second Hand Smoke Exposure: No Substance Use Type: Marijuana Meds Allergies Allergy/AdvReac Type Severity Reaction Status Date / Time No Known Allergies Allergy Verified 01/06/23 08:46 [No Known Allergies*] Home Medications Medication Instructions Recorded Confirmed Last Taken Type naproxen 375 mg tablet 375 mg PO BID 02/01/23 Unknown History ondansetron HCl 8 mg tablet 8 mg PO Q6H PRN nausea/vomiting 02/01/23 Unknown History oxycodone-acetaminophen 5 mg-325 1 tab PO Q6H PRN pain 02/01/23 Unknown History mg tablet prednisone 20 mg tablet 20 mg PO DAILY 02/01/23 Unknown History tamsulosin 0.4 mg capsule 0.4 mg PO DAILY 02/01/23 Unknown History Exam Exam Date and Time: January 31, 2023 1059 Pertinent Lab Results Pertinent Lab Results: Laboratory Tests 01/05/23 01/05/23 07:25 07:25 WBC 4.8 Hgb 14.1 Hct 43.0 Plt Count 255 Sodium 140 Potassium 4.3 Chloride 105 Carbon Dioxide 29 BUN 9 Creatinine 0.75 Assessment and Plan Assessment Anesthesia Assessment: Chart Reviewed Final Anesthetic Review Family History of Problems with Anesthesia: No History of Problems with Anesthesia: No Documented by User: Anette Cabral MD 02/01/23 14:09 [facility] Past Medical History Medical History Nephrolithiasis Social History Social History Alcohol intake: never Patient Tobacco Use Status: Never used Tobacco Second Hand Smoke Exposure: No Substance Use Type: Marijuana Meds Allergies Allergy/AdvReac Type Severity Reaction Status Date / Time No Known Allergies Allergy Verified 01/06/23 08:46 [No Known Allergies*] Home Medications Medication Instructions Recorded Confirmed Last Taken Type naproxen 375 mg tablet 375 mg PO BID 02/01/23 Unknown History ondansetron HCl 8 mg tablet 8 mg PO Q6H PRN nausea/vomiting 02/01/23 Unknown History oxycodone-acetaminophen 5 mg-325 1 tab PO Q6H PRN pain 02/01/23 Unknown History mg tablet prednisone 20 mg tablet 20 mg PO DAILY 02/01/23 Unknown History tamsulosin 0.4 mg capsule 0.4 mg PO DAILY 02/01/23 Unknown History Exam Airway Mallampati Class: I TM Dist: >3cm Neck ROM: Full Loose/Missing/Broken Teeth: No Heart: rr Lungs: cta Assessment and Plan Final Anesthetic Review NPO: Yes ASA Class: I Final Preanesthetic Review: No Changes in Pt Med Stat, Meds/Allgs Chart Reviewed, Consent Obtained/Reviewed and Anes Risks/Benef Reviewed Patient Risk: Low Procedure Risk: Low Anesthetic Plan Anesthetic Plan: GA Disposition: Standard PACU
--- NOTE | ~2023-02-01 | XR_ITS ---
EXAMINATION: XR ABDOMEN KUB CLINICAL INDICATION: 3 lithotripsy, right ureteral stent COMPARISON: CT abdomen and pelvis 01/05/2023 TECHNIQUE: 2 AP views of the abdomen. FINDINGS: Nonobstructive bowel gas pattern. Moderate to large amount of stool in the colon. Ureteral stent with proximal end overlying the right kidney and distal end overlying the bladder. 9 mm calculus identified along the midportion of the right ureteral stent. XR/XR KUB IMPRESSION: 9 mm calculus identified along the midportion of the right ureteral stent.
--- NOTE | ~2023-02-01 | FL_ITS ---
EXAMINATION: XR FLUOROSCOPY WITH IMAGES CLINICAL INFORMATION: Cystoscopy, ureteroscopy, laser, stent removal. COMPARISON: None available. TECHNIQUE: Fluoroscopy Supervised By: Dr. Kay. Fluoroscopy Time: 9 seconds. Cumulative Dose: 1.56 mGy. DAP: Gycm2. Images: 3. FINDINGS: Images demonstrate the proximal end of a right internal ureteral stent and wire in overlying the right renal collecting system and ureter. FL/FL guidance in OR IMPRESSION: Fluoroscopy guidance for urology procedure.
[2023-02-01 08:28] VITALS: BMI 18.8
[2023-02-01 08:41] VITALS: BP 107/64; PULSE 61; RESP 16; TEMP 36.4; O2SAT 94
[2023-02-01] MEDS: Lactated Ringers 1,000 ML 100 ML IVCONT (08:49)
--- NOTE | 2023-02-01 09:11 | MHC.SHP ---
Pre-Procedural Eval Section A Date of Service: 02/01/23 The History & Physical has been completed within 30 days and I have reviewed it.: Yes Section B Chief Complaint: Calculus in ureter, status post ureteroscopy laser Details of Present Illness: 22 year old with obstructing right proximal ureteral stone, status post ureteroscopy and laser, stent Allergies: Allergies Allergy/AdvReac Type Severity Reaction Status Date / Time No Known Allergies Allergy Verified 01/06/23 08:46 [No Known Allergies*] Plan Diagnosis/Plan: Unchanged I have reviewed the history and physical and performed a pertinent physical examination on my patient. No changes have occurred unless specified. cystoscopy, ureteroscopy stent removal, possible stent exchange Time Spent With Patient Time: Total time managing care of this patient today ____ minutes.
--- NOTE | 2023-02-01 10:23 | W.PM.OPN ---
Operative Note Operative Note Date of Service: 02/01/23 Narrative: PreOperative Diagnosis:?? Right ureteral stone, status post ureteroscopy laser lithotripsy, stent insertion Post Operative Diagnosis:?? Right ureteral stone, status post ureteroscopy laser lithotripsy, stent insertion Procedure: Cystoscopy, ureteroscopy right ureteral stent removal Surgeon:?Dr Shi East Anesthesia:? General Procedure: After informed consent was verified the patient was brought to the operating placed on the OR table in supine position.? General Anesthesia was administered per protocol.? The patient was placed in lithotomy position, prepped and draped in the usual sterile fashion.? Safety pause time-out and side of surgery confirmed.? Antibiotics confirmed. A 22 [place] Islander cystoscope was inserted transurethrally, the bulbous urethra was within normal limits. The prostatic urethra was nonobstructive. The bladder was visualized.? Both ureteric orifices were in normal position. The right ureteral stent was curled in the bladder, the stent was noted to be calcified. Using the open ended ureteral catheter, a guidewire was passed along side the ureteral stent into the right ureter to the renal pelvis. The? distal end of the right ureteral stent was grasped with the flexible grasping forceps. The stent was pulled out retrograde through the urethra. The cystoscope was removed, leaving the guidewire in place. The guidewire was used as the safety and was attached to the draping. On fluoroscopy there appeared to be 2 small calcifications in the upper distal ureter. The semi rigid ureteroscope was passed transurethrally into the ureter. A small blood clot and calcification was noted and the 0 degree basket was used to remove them from the ureter. The ureteroscope was removed. The cystoscope was passed over the safety guidewire and the The bladder was emptied.? The guide wire was removed. The rigid cystoscope was removed. ? The patient tolerated the procedure well and was brought to the recovery room in stable condition. Complications: None Drains: None
[2023-02-01 10:29] VITALS: BP 107/59; PULSE 58; RESP 18; TEMP 36.4; O2SAT 97
[2023-02-01 10:34] VITALS: BP 105/56; PULSE 53; RESP 18; O2SAT 97
[2023-02-01 10:39] VITALS: BP 101/54; PULSE 52; RESP 16; O2SAT 97
[2023-02-01 10:44] VITALS: BP 100/51; PULSE 53; RESP 16; O2SAT 97
[2023-02-01] MEDS: Phenazopyridine HCL 100 MG TABLET 200 MG PO (10:54)
[2023-02-01 10:59] VITALS: BP 112/62; PULSE 56; RESP 16; TEMP 36.4; O2SAT 99
== END 2023-02-01 11:30 | disposition home or self-care (01) ==
PROVIDERS: PCP Family Medicine; Visit Provider Urology
PROC: (CPT 52352; principal; 2023-02-01 09:10)
DX: N20.1 Calculus of ureter (principal); N13.30 Unspecified hydronephrosis; Z87.442 Personal history of urinary calculi; R16.0 Hepatomegaly, not elsewhere classified; K57.30 Diverticulosis of large intestine without perforation or abscess without bleeding; R59.9 Enlarged lymph nodes, unspecified; Z79.899 Other long term (current) drug therapy
CPT/HCPCS: 52352; 74018; C1758; C1769; J0690; J1885; J2405; J3010; Q9967